=== PATIENT | male | born 1970 | race Caucasian/White ===

== ENCOUNTER 2024-03-10 19:42 | Observation (INO) | payer BC, SELFPAY ==
[2024-03-10] VITALS (7 sets, daily range): BP systolic 171–204; BP diastolic 97–119; PULSE 81–94; RESP 2–28; TEMP 36.9–37.1; O2SAT 92–98; BMI 30.4
--- NOTE | 2024-03-10 20:13 | EX.ED.DYSGE1 ---
HPI History of Present Illness Chief Complaint: Syncope Informant: patient Onset/Context/Timing Context: Sudden Onset Timing: Waxes and wanes Quality: Tightness Location: Substernal Worsened by: Nothing Relieved by: Nitroglycerin Narrative Narrative: Patient presents with chest pain and diaphoresis that began today. Patient states it began rather suddenly. Patient states that he broke into a sweat and became short of breath. Patient states he then developed some tightness across his substernal area. Family states the patient had a syncopal episode after this the last approximately 2 minutes. Family states that he stopped at a gas station and gave him aspirin. EMS administered 2 sublingual nitroglycerin. Patient states this did help. Patient denies any nausea or vomiting. Patient denies any cough or fever. Patient states he did feel lightheaded prior to the syncopal episode. Patient states he has a family history of both parents having coronary artery disease less than 55 years of age. [facility] Medical History Crohn disease Hypertension Diabetes Home Medications ?Medication ?Instructions ?Recorded ?Last Taken ?Type amlodipine 10 mg tablet 10 mg PO DAILY 03/10/24 Unknown History duloxetine 20 mg capsule,delayed 20 mg PO DAILY 03/10/24 Unknown History release (Cymbalta) folic acid 1 mg tablet 1 mg PO DAILY 03/10/24 Unknown History glimepiride 4 mg tablet 2 mg PO QHS 03/10/24 Unknown History glimepiride 4 mg tablet 4 mg PO DAILY 03/10/24 Unknown History lisinopril 20 mg tablet 20 mg PO DAILY 03/10/24 Unknown History metoprolol succinate 50 mg 50 mg PO DAILY 03/10/24 Unknown History tablet,extended release 24 hr (Toprol XL) pregabalin 50 mg capsule (Lyrica) 50 mg PO BID 03/10/24 Unknown History tramadol 50 mg tablet 50 mg PO BID 03/10/24 Unknown History Allergy/AdvReac Type Severity Reaction Status Date / Time Penicillins AdvReac NEEDS Verified 03/10/24 19:43 FOLLOW-UP Surgical History no surgical history no surgical history Social History Smoking Status: Never smoker ROS ROS ED Constitutional Constitutional ED: Reports sweats; Denies chills or fever(s) Eyes Eyes: Denies blurry vision or change in vision ENT ENT ED: Denies rhinorrhea or sore throat Cardiovascular Cardiovascular: Denies chest pain or palpitations Respiratory/Chest Respiratory/Chest: Denies cough or dyspnea Gastrointestinal Gastrointestinal: Denies nausea or vomiting Genitourinary Genitourinary ED: Denies dysuria or hematuria Musculoskeletal Musculoskeletal: Reports neck pain; Denies back pain Integumentary Denies abscess or rash Neurologic Neurologic: Reports headache(s); Denies weakness Allergic/Immunologic Allergic/Immunologic ED: Denies mouth swelling or urticaria EXAM Physical Exam Const Vital Signs: 03/10/24 19:42 03/10/24 19:48 03/10/24 20:42 Temperature 98.5 F Temperature Source Oral Pulse Rate 86 85 Pulse Rate [Lying] Pulse Rate [Sitting (for 1 minute prior to obtaining)] Pulse Rate [Standing (for 1 minute prior to obtaining)] Respiratory Rate 16 28 H Respiratory Effort Normal Non-Labored Respiratory Pattern Normal Blood Pressure 204/118 H 196/109 H Blood Pressure [Lying] Blood Pressure [Sitting (for 1 minute prior to obtaining)] Blood Pressure [Standing (for 1 minute prior to obtaining)] Blood Pressure Mean 146 138 Blood Pressure Mean [Lying] Blood Pressure Mean [Sitting (for 1 minute prior to obtaining)] Blood Pressure Mean [Standing (for 1 minute prior to obtaining)] Pulse Ox 98 92 Oxygen Delivery Method Room Air Room Air 03/10/24 21:00 03/10/24 21:38 03/10/24 22:00 Temperature Temperature Source Pulse Rate 87 94 Pulse Rate [Lying] 81 Pulse Rate [Sitting (for 1 minute prior to obtaining)] 81 Pulse Rate [Standing (for 1 minute prior to obtaining)] 85 Respiratory Rate 2 L 20 H Respiratory Effort Respiratory Pattern Blood Pressure 171/99 H 180/97 H Blood Pressure [Lying] 190/100 H Blood Pressure [Sitting (for 1 minute prior to obtaining)] 200/119 H Blood Pressure [Standing (for 1 minute prior to obtaining)] 196/112 H Blood Pressure Mean 123 124 Blood Pressure Mean [Lying] 130 Blood Pressure Mean [Sitting (for 1 minute prior to obtaining)] 146 Blood Pressure Mean [Standing (for 1 minute prior to obtaining)] 140 Pulse Ox 96 93 Oxygen Delivery Method Room Air Room Air 03/10/24 23:00 Temperature Temperature Source Pulse Rate 83 Pulse Rate [Lying] Pulse Rate [Sitting (for 1 minute prior to obtaining)] Pulse Rate [Standing (for 1 minute prior to obtaining)] Respiratory Rate 15 Respiratory Effort Respiratory Pattern Blood Pressure 193/104 H Blood Pressure [Lying] Blood Pressure [Sitting (for 1 minute prior to obtaining)] Blood Pressure [Standing (for 1 minute prior to obtaining)] Blood Pressure Mean 133 Blood Pressure Mean [Lying] Blood Pressure Mean [Sitting (for 1 minute prior to obtaining)] Blood Pressure Mean [Standing (for 1 minute prior to obtaining)] Pulse Ox 97 Oxygen Delivery Method Room Air Positive well nourished and well developed General Appearance ED: well developed and NAD HEENT Reports moist mucous membranes Neck supple and no JVD Resp normal respiratory effort and clear to auscultation bilaterally Cardio regular rate and regular rhythm GI non-tender and non-distended Palpation: soft Extremity General Extremety ED: Negative for edema or tenderness General Extremity: Negative for edema Neuro oriented x3, CN's II-XII intact bilaterally and no sensory deficits noted Sensorium / Orientation: alert Motor Exam: strength 5/5 throughout Psych mental status grossly normal MDM MDM MDM Narrative Medical decision making narrative: Differential diagnosis includes cardiac dysrhythmia, cardiac ischemia, electrolyte abnormality, dehydration, pneumonia, pneumothorax, alcohol intoxication, and anxiety. EKG will be obtained to assess for cardiac dysrhythmia and cardiac ischemia. Chest x-ray will be obtained to assess for pneumonia and pneumothorax. CBC will be obtained to assess for leukocytosis and anemia. Basic metabolic profile will be obtained to assess for electrolyte abnormality and renal function. High-sensitivity troponin will be obtained to assess for cardiac ischemia. 2-hour repeat high-sensitivity troponin will be obtained to assess for ongoing cardiac ischemia. Serum alcohol level will be obtained to assess for alcohol intoxication. Lab Data Attestation: I reviewed the patient's lab results. Lab results narrative: CBC was reviewed and was within normal limits. Basic metabolic profile was reviewed. Potassium was slightly low at 3.1. BUN was 19 and creatinine was 1.78. Glucose was mildly elevated at 209. Initial high-sensitivity troponin was reviewed and was normal at 15. Serum alcohol level was reviewed and was normal at 14. Urinalysis was reviewed. There is no evidence of urinary tract infection or hematuria. 2-hour repeat high-sensitivity troponin was reviewed and was normal at 14. Labs: Laboratory Results - last 24 hr 03/10/24 03/10/24 03/10/24 19:51 20:40 21:35 WBC 8.6 RBC 5.63 Hgb 16.3 Hct 46.3 MCV 82.2 MCH 29.0 MCHC 35.2 RDW Std Deviation 36.2 RDW Coeff of Rubin 12.1 Plt Count 269 MPV 8.6 Immature Gran % (Auto) 0.200 Neut % (Auto) 69.9 Lymph % (Auto) 21.1 Pine % (Auto) 7.0 Eos % (Auto) 1.2 Baso % (Auto) 0.6 Absolute Neuts (auto) 6.0 Absolute Lymphs (auto) 1.81 Nucleated RBC % 0 Sodium 140 Potassium 3.1 L Chloride 103 Carbon Dioxide 28.0 Anion Gap 9 BUN 19 H Creatinine 1.78 H Estim Creat Clear Calc 58.27 Est GFR (MDRD) Af Amer 52 L Est GFR (MDRD) Non-Af 43 L BUN/Creatinine Ratio 10.7 Glucose 209 H Calcium 9.1 Troponin I High Sens 15 Urine Color Yellow Urine Clarity Clear Urine pH 7.0 Ur Specific [place] 1.010 Urine Protein 30 H Urine Glucose (UA) 1000 H Urine Ketones Negative Urine Occult Blood 10 H Urine Nitrite Negative Urine Bilirubin Negative Urine Urobilinogen Normal Ur Leukocyte Esterase Negative Urine RBC 0 SEEN Urine WBC 0 SEEN Ur Squamous Epith Cells 0 SEEN Urine Bacteria 0 SEEN Urine Mucus 0 SEEN Ethyl Alcohol 14.0 03/10/24 21:58 WBC RBC Hgb Hct MCV MCH MCHC RDW Std Deviation RDW Coeff of Rubin Plt Count MPV Immature Gran % (Auto) Neut % (Auto) Lymph % (Auto) Pine % (Auto) Eos % (Auto) Baso % (Auto) Absolute Neuts (auto) Absolute Lymphs (auto) Nucleated RBC % Sodium Potassium Chloride Carbon Dioxide Anion Gap BUN Creatinine Estim Creat Clear Calc Est GFR (MDRD) Af Amer Est GFR (MDRD) Non-Af BUN/Creatinine Ratio Glucose Calcium Troponin I High Sens 14 Urine Color Urine Clarity Urine pH Ur Specific [place] Urine Protein Urine Glucose (UA) Urine Ketones Urine Occult Blood Urine Nitrite Urine Bilirubin Urine Urobilinogen Ur Leukocyte Esterase Urine RBC Urine WBC Ur Squamous Epith Cells Urine Bacteria Urine Mucus Ethyl Alcohol Radiography Chest X-Ray - ED: 2 View, Read by ED Physician, Read by Radiologist and No Acute Disease Diagnostic Testing: Clinical Impression(s) from Imaging Studies Chest X-Ray 03/10/24 20:45 IMPRESSION: No acute radiographic abnormalities. Electronically Signed: Vineet Harris MD at 21:30 EDT , PA and lateral chest x-ray was obtained. There are 2 views. On my independent interpretation, lung bashir are clear. There is normal cardiac silhouette. Bony thorax is normal. There is no acute process noted. Radiologist also interpreted the x-ray and agrees. EKG Initial EKG: Attestation: I personally reviewed and interpreted this EKG as follows: Interpretation: Sinus Rhythm (95) and Non-Specific ST Changes Comments: EKG was obtained. On my independent interpretation, it showed a normal sinus rhythm with a rate of 95. VA interval, QRS interval, and QTc intervals were all normal. [place] was normal. There are nonspecific ST-T wave changes. Prior EKG tracings: not available for review Prior: No Prior Management Discussion w/another healthcare provider: Hospitalist Treatment and Re-Evaluation :: Patient's blood pressure remained elevated. Patient was given a dose of hydralazine. Patient's blood pressure improved after this. Because of the elevated creatinine, patient was given 500 cc bolus of normal saline. Patient states he has never been told he has had problems with his kidneys in the past. There are no prior laboratory values available for comparison. Because of this, I recommended admission to the hospital for syncope, hypertensive urgency, and acute kidney injury. Case was discussed with the hospitalist. She will admit the patient to her service. Patient understood and was agreeable with the plan. All questions were answered. Discharge Plan Dx/Rx/DC Orders Clinical Impression: Acute kidney injury, Hypertension, Syncope Disposition Disposition: Acute Care Hospital [facility]
--- NOTE | 2024-03-10 20:34 | EKG12_ITS ---
Test Reason : CP Blood Pressure : / mmHG Vent. Rate : 095 BPM Atrial Rate : 095 BPM P-R Int : 180 ms QRS Dur : 068 ms QT Int : 332 ms P-R-T Axes : 040 039 022 degrees QTc Int : 417 ms Sinus rhythm with occasional Premature ventricular complexes Cannot rule out Septal infarct , age undetermined ST & T wave abnormality, consider inferior ischemia Abnormal ECG Confirmed by Shyam Saenz ([id number]), purchase request editor LIDIA LEMOS ([id number]) on 03/12/2024 10:53:01 AM Referred By: SATHYA Confirmed By:Shyam Saenz
--- NOTE | 2024-03-10 20:45 | RAD_ITS ---
INDICATION: CHEST PAIN EXAMINATION/TECHNIQUE: X-RAY - XR Chest 2 Views COMPARISON: None. FINDINGS: The lungs are clear. The heart is borderline enlarged. No pleural effusion or pneumothorax. No acute osseous abnormalities. RAD/Chest PA and Lateral IMPRESSION: No acute radiographic abnormalities. Electronically Signed: Vineet Harris MD at 21:30 EDT ,
[2024-03-10 20:47] LABS: Absolute Lymphocyte Count 1.81 X10^3/uL (0.83-4.51); Basophil# 0.05 X10^3/uL; Basophil% 0.6 % (0-1); Eosinophils% 1.2 % (0-5); Hematocrit 46.3 % (40-54); Hemoglobin 16.3 g/dL (13.0-16.5); Lymphocyte # 1.81 X10^3/ul (0.83-4.51); Lymphocyte % 21.1 % (19-41); Mean Corp Hgb Conc 35.2 g/dL (32-36); Mean Corpuscular Volume 82.2 fL (80-94); Mean Platelet Vol. 8.6 fl (6.2-12.0); NRBC Flagged by Analyzer 0 % (0-5); Neutrophil % 69.9 % (47-70); Platelet Count 269 K/mm3 (150-450); RBC Distribution Width CV 12.1 % (11.6-14.6); RBC Distribution Width SD 36.2 fl (35.1-43.9); Red Blood Count 5.63 M/mm3 (4.6-6.2); White Blood Count 8.6 K/mm3 (4.4-11.0)
[2024-03-10 21:07] LABS: Anion Gap 9 (5-15); BUN 19 mg/dL (7-18); BUN/Creat Ratio 10.7 RATIO (10-20); Calcium,Total 9.1 mg/dL (8.5-10.1); Chloride 103 mmol/L (98-107); Creatinine, Serum 1.78 mg/dL (0.70-1.30); EST Glomerular Filtration Rate 43 mL/min (>60); Est Glom Filt Rate - Afr Amer 52 mL/min (>60); Estimated Creatinine Clearance 58.27 ml/min; Glucose 209 mg/dL (74-106); Potassium 3.1 mmol/L (3.5-5.1); Sodium Level 140 mmol/L (136-145); Troponin-I HS (w/2H Reflex) 15 pg/mL (3.0-78.0)
[2024-03-10 21:40] LABS: Bacteria 0 SEEN /hpf (None Seen); Mucous, Urine 0 SEEN /hpf (<or=2+); Red Blood Cells-Urine 0 SEEN /hpf (0-5); Squamous Epithelial Cells - UA 0 SEEN /hpf (0-5); White Blood Cells 0 SEEN /hpf (0-5)
[2024-03-10 21:41] LABS: Color, Urine Yellow (Yellow); Glucose, Dipstick 1000 mg/dl (Normal); Ketone-Dipstick Negative (Negative); Leukocyte Esterase-Dipstick Negative /ul (Negative); Nitrite-Dipstick Negative (Negative); Occult Blood-Urine 10 /ul (Negative); Protein-Dipstick 30 mg/dl (Negative); Urine Bilirubin Dipstick Negative (Negative); Urine Clarity Clear (Clear); Urine Urobilinogen Normal (Normal)
[2024-03-10] MEDS: hydrALAZINE 20 MG/ML Vial 10 MG IV (21:54)
[2024-03-10] MEDS: Potassium Chloride Oral Tablet 20 MEQ 40 MEQ PO (21:55)
[2024-03-10 22:39] LABS: Reflex Troponin-HS? (from REC) Y
[2024-03-10 22:57] LABS: Troponin-I HS 14 pg/mL (3.0-78.0)
[2024-03-10] MEDS: 0.9% Normal Saline (500mL Bag) 500 ML 1000 ML IV (23:00)
--- NOTE | 2024-03-10 23:25 | HP.PCM.HOS_ITS ---
HPI - General General Date of Admission: 03/10/24 Date of Service: 03/10/24 Chief Complaint: Syncope HPI Narrative MARTINEZ GUERRERO, is a 53 M who presented to the emergency department at [facility] on 03/10/2024 with a chief complaint of syncope. Patient reported that all of his symptoms started with some chest pain and diaphoresis that began prior to arrival. It started abruptly and he became very sweaty and then short of breath and following developed tightness across his chest and substernal area. He then had a syncopal episode that lasted about 2 minutes. Family reported that they stopped at a gas station and gave him some aspirin. He also was administered 2 sublingual nitroglycerin by the squad prior to arrival. The patient did state that this helped. He had no nausea or vomiting. He has denied any fever or chills, he has had no cough, his bowels have been normal and he said no hematochezia or melena. He has a personal history of hypertension, hyperlipidemia, and diabetes and he has a family history of early onset coronary disease with both of his parents having CAD at less than 55 years of age. He has had previous stress test however has been greater than 10 years that this was performed. Vital signs on presentation showed a temperature of 98.5, heart rate 86, respiratory rate 16, initial blood pressure was 204/118 with repeat at 171/99 after IV medication. Orthostatic vitals were normal. Oxygen saturation has been in the 90s on room air. CBC was unremarkable. His chemistry panel showed mild hypokalemia with a potassium of 3.1, and elevated BUN and creatinine with a BUN of 19 and a serum creatinine of 1.78. Glucose was elevated at 209. Initial troponin was 15 with a repeat of 14. UA shows glucose urea and some occult blood but is not significant for any infection. Alcohol level was 14. Chest x- ray was unremarkable. EKG showed some nonspecific T wave flattening in the lateral leads but no changes consistent with acute ischemia and intervals were normal. [facility] Medical History (Updated 03/11/24 @ 01:[address] Mariana Decker, DO) Chronic pain Diabetic neuropathy Depression Obesity Crohn disease Hypertension Diabetes Home Medications ?Medication ?Instructions ?Recorded ?Last Taken ?Type amlodipine 10 mg tablet 10 mg PO DAILY 03/10/24 Unknown History duloxetine 20 mg capsule,delayed 20 mg PO DAILY 03/10/24 Unknown History release (Cymbalta) folic acid 1 mg tablet 1 mg PO DAILY 03/10/24 Unknown History glimepiride 4 mg tablet 2 mg PO QHS 03/10/24 Unknown History glimepiride 4 mg tablet 4 mg PO DAILY 03/10/24 Unknown History lisinopril 20 mg tablet 20 mg PO DAILY 03/10/24 Unknown History metoprolol succinate 50 mg 50 mg PO DAILY 03/10/24 Unknown History tablet,extended release 24 hr (Toprol XL) pregabalin 50 mg capsule (Lyrica) 50 mg PO BID 03/10/24 Unknown History tramadol 50 mg tablet 50 mg PO BID 03/10/24 Unknown History Allergy/AdvReac Type Severity Reaction Status Date / Time Penicillins AdvReac NEEDS Verified 03/10/24 19:43 FOLLOW-UP Family History (Updated 03/11/24 @ 01:[address] Mariana Decker DO) Other Diabetes Heart disease Hypertension Surgical History no surgical history no surgical history Social History (Updated 03/11/24 @ 01:[address] Mariana Decker DO) household members: spouse housing: house Smoking Status: Never smoker alcohol intake: current alcohol intake frequency: a few times a month substance use type: does not use ROS Constitutional Constitutional: Denies anorexia, change in weight, chills, fatigue, fever(s), malaise, night sweats, weakness or other Eyes Eyes: Denies blurry vision, change in eye color, change in vision, discharge from eye(s), double vision, erythema, eye pain, loss of vision or other ENT HEENT: Denies abnormal hearing, dysphagia, ear pain, epistaxis, headache(s), hearing loss, nasal congestion, nasal discharge, post nasal drip, sinus pressure, sore throat or other Cardiovascular Cardiovascular: Reports chest pain, syncope and other Details: Diaphoresis Respiratory/Chest Respiratory/Chest: Reports shortness of breath at rest; Denies cough, dyspnea, excessive phlegm production, hemoptysis, productive cough, shortness of breath with exertion, wheezing or other Gastrointestinal Gastrointestinal: Denies abdominal pain, coffee ground emesis, constipation, diarrhea, dyspepsia, hematemesis, hematochezia, loose stools, melena, nausea, vomiting or other Genitourinary Genitourinary: Denies burning urination, difficulty urinating, dysuria, hematuria, nocturia, urinary frequency, urinary hesitancy, urinary incontinence, urinary urgency or other Musculoskeletal Musculoskeletal: Denies arthralgias, back pain, joint pain, joint stiffness, joint swelling, myalgias, neck pain or other Neurologic Neurologic: Reports headache(s) and paresthesias; Denies abnormal gait, abnormal speech, confusion, disequilibrium, dizziness, focal weakness, numbness, seizure- like activity, seizures, syncope, tingling, tremor(s) or other Psychiatric Psychiatric: Reports anxiety and depression; Denies homicidal ideation, suicidal ideation or other Endocrine Endocrinology: Denies change in body appearance, cold intolerance, excessive sweating, heat intolerance, polydipsia, polyuria or other Hematologic/Lymphatic Hematologic/Lymphatic: Denies anemia, easy bleeding, easy bruising, lymphadenopathy or other Allergic/Immunologic Allergic/Immunologic: Denies rhinitis, hives, eczemia, asthma or other Vital Signs Vital Signs Vital Signs: 03/10/24 19:42 03/10/24 19:48 03/10/24 20:42 Temperature 98.5 F Temperature Source Oral Pulse Rate 86 85 Pulse Rate [Lying] Pulse Rate [Sitting (for 1 minute prior to obtaining)] Pulse Rate [Standing (for 1 minute prior to obtaining)] Respiratory Rate 16 28 H Respiratory Effort Normal Non-Labored Respiratory Pattern Normal Blood Pressure 204/118 H 196/109 H Blood Pressure [Lying] Blood Pressure [Sitting (for 1 minute prior to obtaining)] Blood Pressure [Standing (for 1 minute prior to obtaining)] Blood Pressure Mean 146 138 Blood Pressure Mean [Lying] Blood Pressure Mean [Sitting (for 1 minute prior to obtaining)] Blood Pressure Mean [Standing (for 1 minute prior to obtaining)] Pulse Ox 98 92 Oxygen Delivery Method Room Air Room Air 03/10/24 21:00 03/10/24 21:38 03/10/24 22:00 Temperature Temperature Source Pulse Rate 87 94 Pulse Rate [Lying] 81 Pulse Rate [Sitting (for 1 minute prior to obtaining)] 81 Pulse Rate [Standing (for 1 minute prior to obtaining)] 85 Respiratory Rate 2 L 20 H Respiratory Effort Respiratory Pattern Blood Pressure 171/99 H 180/97 H Blood Pressure [Lying] 190/100 H Blood Pressure [Sitting (for 1 minute prior to obtaining)] 200/119 H Blood Pressure [Standing (for 1 minute prior to obtaining)] 196/112 H Blood Pressure Mean 123 124 Blood Pressure Mean [Lying] 130 Blood Pressure Mean [Sitting (for 1 minute prior to obtaining)] 146 Blood Pressure Mean [Standing (for 1 minute prior to obtaining)] 140 Pulse Ox 96 93 Oxygen Delivery Method Room Air Room Air 03/10/24 23:00 03/10/24 23:24 Temperature 98.7 F Temperature Source Pulse Rate 83 88 Pulse Rate [Lying] Pulse Rate [Sitting (for 1 minute prior to obtaining)] Pulse Rate [Standing (for 1 minute prior to obtaining)] Respiratory Rate 15 24 H Respiratory Effort Respiratory Pattern Blood Pressure 193/104 H 195/104 H Blood Pressure [Lying] Blood Pressure [Sitting (for 1 minute prior to obtaining)] Blood Pressure [Standing (for 1 minute prior to obtaining)] Blood Pressure Mean 133 134 Blood Pressure Mean [Lying] Blood Pressure Mean [Sitting (for 1 minute prior to obtaining)] Blood Pressure Mean [Standing (for 1 minute prior to obtaining)] Pulse Ox 97 96 Oxygen Delivery Method Room Air Weight Weight: 99.2 kg Body Mass Index (BMI) 30.4 Physical Exam Const alert, oriented x3, no apparent distress, healthy appearing and well nourished; Negative for average body habitus Constitutional Narrative: Overweight, middle-aged, white male, sitting up in bed, currently appears comfortable, does not appear toxic, at bedside General Appearance: cooperative HEENT normocephalic, head/scalp atraumatic, hearing grossly normal bilaterally and moist oral mucous membranes HEENT Narrative: Mallampati 3, no thrush Eyes PERRL, EOMs intact bilaterally and conjunctivae normal Eyes Narrative: No scleral icterus Neck no lymphadenopathy, supple, no JVD and no carotid bruits Neck Narrative: Trachea midline, no thyroid enlargement Resp normal respiratory effort, no retractions, no use of accessory muscles and clear to auscultation bilaterally Auscultation: Negative for rales, rhonchi or wheezes Cardio regular rate, regular rhythm, S1 normal heart sound, S2 normal heart sound, no murmurs, no rub and no clicks; Negative for no gallops Cardio Narrative: S4 gallop present GI normal to inspection, nondistended, normoactive bowel sounds, soft to palpation and non-tender Extremity no clubbing, cyanosis or edema Extremity Narrative: Radial and pedal pulses are 2+ Neuro oriented x3, moves all extremities and no focal motor deficits Speech: speech normal Psych affect normal Psych Narrative: Very pleasant, interacts appropriately Results Lab / Micro Data 03/10/24 19:51 03/10/24 19:51 Labs: Laboratory Results - last 24 hr 03/10/24 19:51: WBC 8.6, RBC 5.63, Hgb 16.3, Hct 46.3, MCV 82.2, MCH 29.0, MCHC 35.2, RDW Std Deviation 36.2, RDW Coeff of Rbuin 12.1, Plt Count 269, MPV 8.6, Immature Gran % (Auto) 0.200, Neut % (Auto) 69.9, Lymph % (Auto) 21.1, [place] % (Auto) 7.0, Eos % (Auto) 1.2, Baso % (Auto) 0.6, Absolute Neuts (auto) 6.0, Absolute Lymphs (auto) 1.81, Nucleated RBC % 0, Sodium 140, Potassium 3.1 L, Chloride 103, Carbon Dioxide 28.0, Anion Gap 9, BUN 19 H, Creatinine 1.78 H, Estim Creat Clear Calc 58.27, Est GFR (MDRD) Af Amer 52 L, Est GFR (MDRD) Non-Af 43 L, BUN/Creatinine Ratio 10.7, Glucose 209 H, Calcium 9.1, Troponin I High Sens 15 03/10/24 20:40: Ethyl Alcohol 14.0 03/10/24 21:35: Urine Color Yellow, Urine Clarity Clear, Urine pH 7.0, Ur Specific [place] 1.010, Urine Protein 30 H, Urine Glucose (UA) 1000 H, Urine Ketones Negative, Urine Occult Blood 10 H, Urine Nitrite Negative, Urine Bilirubin Negative, Urine Urobilinogen Normal, Ur Leukocyte Esterase Negative, Urine RBC 0 SEEN, Urine WBC 0 SEEN, Ur Squamous Epith Cells 0 SEEN, Urine Bacteria 0 SEEN, Urine Mucus 0 SEEN 03/10/24 21:58: Troponin I High Sens 14 Micro: Microbiology 03/10/24 20:40 Mucosa - Nasopharyngeal SARS-CoV-2, Influenza & RSV (PCR) - Final Imaging Radiology Impression Chest X-Ray 03/10/24 20:45 IMPRESSION: No acute radiographic abnormalities. Electronically Signed: Martinez Harris MD at 21:30 EDT , Assessment & Plan Assessment/Plan (1) Syncope: (2) Hypertension: (3) Acute kidney injury: (4) Hypokalemia: (5) Hyperglycemia due to diabetes mellitus: PLAN: Plan Syncope -Sounds like this may be a vagal response due to his pain and diaphoresis -Orthostatic vitals are negative -Patient does appear to be somewhat dehydrated however we are unclear what his baseline renal function is -Monitor on telemetry -Check a.m. TSH -Check echocardiogram -Check stress test Chest pain/diaphoresis/shortness of breath -Patient with personal risk factors for coronary disease and family history of concerning -Cycle cardiac enzymes--> initial normal at 14 -EKG without any acute findings concerning for acute ischemia -Check echocardiogram -Check lipid profile -Check hemoglobin A1c -Check stress test Hypokalemia -Potassium was replaced -Recheck in a.m. -Check a.m. magnesium level DM-2 with hyperglycemia -Patient takes oral agents in the form of glimepiride at home -Check hemoglobin A1c -Oral agents on hold -SSI -Accu-Cheks as ordered -Cardiac/carb controlled diet Elevated serum creatinine -Baseline serum creatinine is unknown -Hold home lisinopril -Check CPK -IV fluids x 2 L -Repeat lab in a.m. and if not improved may need further workup -UA is overall unremarkable other than glucosuria/small proteinuria and small occult blood with no RBCs Hypertensive urgency -Continue home amlodipine -Hold home lisinopril due to renal function -Continue home metoprolol -Clonidine 0.2 mg x 1 dose -As needed hydralazine for systolic blood pressure greater than 160 -Hopefully will be able to restart lisinopril tomorrow but this will depend on renal function -May need further oral medication at discharge but will need to await trends Neuropathy/chronic pain -Continue home Lyrica -Continue home Ultram Depression -Continue home Cymbalta History of Crohn's disease -Patient's not on any chronic therapy for this -Hemoglobin is stable -Continued outpatient follow-up DVT prophylaxis -Heparin 3 times daily CODE STATUS -Full code Charges/Coding Visit Charges Inpatient E&M: 78455 Init Hosp L3
[2024-03-11] VITALS (12 sets, daily range): BP systolic 141–199; BP diastolic 94–122; PULSE 55–95; RESP 16–18; TEMP 36.2–36.8; O2SAT 96–99; BMI 29.9
--- NOTE | 2024-03-11 00:26 | ECHOD_ITS ---
Reason For Study: Chest Pain Procedure This was a 2D Doppler, Color Flow transthoracic echocardiogram. Exam performed in department. Left Ventricle Normal LV size. Moderate concentric left ventricular hypertrophy. The left ventricular ejection fraction is 65 %. Normal diastololic function. Right Ventricle Normal right ventricle. Atria The left and right atria are normal. Mitral Valve Trivial mitral valve insufficiency. Tricuspid Valve Mild tricuspid valve insufficiency. Normal pulmonary artery pressure. Aortic Valve Trisinus/trileaflet aortic valve. Pulmonic Valve Trivial pulmonic valve insufficiency. MMode/2D Measurements & Calculations LVIDd: 4.4 cm IVSd: 1.8 cm Ao root diam: 3.9 cm LVIDs: 2.9 cm LVPWd: 1.5 cm LA dimension: 4.8 cm RVDd: 3.8 cm FS: 34.3 % LAV(MOD-bp): 63.5 ml SV(MOD-sp4): 73.2 ml LVAd ap4: 36.2 cm2 LAV(MOD-bp) Indexed: 29.3 ml/m2 LVLd ap4: 9.2 cm LAV(MOD-sp2): 72.1 ml EDV(MOD-sp4): 113.6 ml LAV(MOD-sp4): 53.2 ml EDV(sp4-el): 121.0 ml LVAs ap4: 19.4 cm2 LVLs ap4: 7.9 cm ESV(MOD-sp4): 40.4 ml ESV(sp4-el): 40.8 ml EF(MOD-sp4): 64.4 % EF(sp4-el): 66.3 % SV(sp4-el): 80.3 ml LA A4 area: 18.5 cm2 RA A4 area: 18.7 cm2 TAPSE: 1.6 cm Time Measurements MV dec time: 0.21 sec Doppler Measurements & Calculations MV E max boo: 81.0 cm/sec Lat Peak E' Boo: 9.5 cm/sec Med Peak E' Boo: 7.4 cm/sec MV A max boo: 77.3 cm/sec E/E' lat: 8.5 E/E' med: 10.9 MV E/A: 1.0 MV V2 max: 94.9 cm/sec MV P1/2t max boo: 96.9 cm/sec Ao V2 max: 121.4 cm/sec MV max P.6 mmHg MV P1/2t: 78.2 msec Ao max P.9 mmHg MV V2 mean: 50.0 cm/sec MV dec slope: 363.1 cm/sec2 Ao V2 mean: 87.1 cm/sec MV mean P.2 mmHg Ao mean P.5 mmHg MV V2 VTI: 35.7 cm MVA(P1/2t): 2.8 cm2 Ao V2 VTI: 28.4 cm AV (velocity ratio): 0.94 LV V1 max: 117.1 cm/sec PA V2 max: 100.6 cm/sec TR max boo: 222.6 cm/sec LV V1 max P.5 mmHg PA max PG (full): 2.1 mmHg TR max P.8 mmHg LV V1 mean P.2 mmHg PA V2 mean: 63.8 cm/sec LV V1 mean: 84.3 cm/sec PA mean PG (full): 0.74 mmHg LV V1 VTI: 26.7 cm ECHO/Echo Complete Interpretation Summary Moderate concentric left ventricular hypertrophy. The left ventricular ejection fraction is 65 %. Mild tricuspid valve insufficiency. Ordering Physician: Mariana Decker Performed By: Jose Mcintyre RCS
--- NOTE | 2024-03-11 00:27 | EKG12_ITS ---
Test Reason : CP Blood Pressure : / mmHG Vent. Rate : 071 BPM Atrial Rate : 071 BPM P-R Int : 204 ms QRS Dur : 084 ms QT Int : 396 ms P-R-T Axes : 046 026 014 degrees QTc Int : 430 ms Normal sinus rhythm Septal infarct , age undetermined Abnormal ECG When compared with ECG of 10-MAR-2024 19:41, MANUAL COMPARISON REQUIRED, DATA IS UNCONFIRMED Confirmed by Shyam Saenz ([id number]), book editor MONTY GAY ([id number]) on 03/12/2024 1:57:00 PM Referred By: Confirmed By:Shyam Saenz
[2024-03-11] MEDS: 0.9% Normal Saline (1000mL) 1,000 ML 150 ML IV (00:58)
[2024-03-11 01:29] LABS: Bedside Glucose 158 mg/dL (74-106)
[2024-03-11] MEDS: cloNIDine HCl 0.2 MG Tablet PO (01:35)
[2024-03-11 02:22] LABS: CPK Total, Creatine Kinase 213 U/L (39-308)
[2024-03-11 02:28] LABS: Troponin-I HS 16 pg/mL (3.0-78.0)
[2024-03-11] MEDS: hydrALAZINE 50 MG Tablet 75 MG PO ×3 (04:13→21:37)
[2024-03-11 05:15] LABS: Absolute Lymphocyte Count 2.04 X10^3/uL (0.83-4.51); Basophil# 0.06 X10^3/uL; Basophil% 0.8 % (0-1); Eosinophil# 0.15 X10^3/uL; Eosinophils% 2.1 % (0-5); Hematocrit 41.9 % (40-54); Hemoglobin 14.6 g/dL (13.0-16.5); Lymphocyte # 2.04 X10^3/ul (0.83-4.51); Lymphocyte % 28.5 % (19-41); Mean Corp Hgb Conc 34.8 g/dL (32-36); Mean Corpuscular Hgb 28.9 pg (27.0-32.0); Mean Platelet Vol. 8.4 fl (6.2-12.0); Monocyte# 0.86 X10^3/uL; NRBC Flagged by Analyzer 0 % (0-5); Neutrophil # 4.03 X10^3/uL (2.7-7.7); Neutrophil % 56.2 % (47-70); Platelet Count 230 K/mm3 (150-450); RBC Distribution Width CV 12.3 % (11.6-14.6); RBC Distribution Width SD 37.4 fl (35.1-43.9); Red Blood Count 5.05 M/mm3 (4.6-6.2); White Blood Count 7.2 K/mm3 (4.4-11.0)
[2024-03-11] MEDS: Heparin Injection (Vial) 5,000 UNIT/ML VIAL 5000 UNIT SC ×3 (05:37→21:38)
[2024-03-11 05:40] LABS: AST(SGOT) 15 U/L (15-37); Alanine Aminotransfer ALT/SGPT 31 U/L (16-61); Albumin, Serum 3.3 g/dL (3.2-5.0); Alkaline Phosphatase 151 U/L (45-117); Anion Gap 5 (5-15); BUN 23 mg/dL (7-18); Calcium,Total 8.2 mg/dL (8.5-10.1); Chloride 107 mmol/L (98-107); Cholesterol 101 mg/dL (200); Creatinine, Serum 1.44 mg/dL (0.70-1.30); EST Glomerular Filtration Rate 55 mL/min (>60); Est Glom Filt Rate - Afr Amer 66 mL/min (>60); Estimated Creatinine Clearance 71.38 ml/min; Globulin 3.2 g/dL (2.2-4.2); Glucose 164 mg/dL (74-106); High Density Lipoprotein 29 mg/dL; Phosphorus 2.6 mg/dL (2.5-4.9); Potassium 3.3 mmol/L (3.5-5.1); Protein, Total 6.5 g/dL (6.4-8.2); Sodium Level 140 mmol/L (136-145); Triglycerides 97 mg/dL; Very Low Density Lipoprotein 19 mg/dL (5-40)
[2024-03-11] MEDS: Insulin Lispro 100 UNIT/ML INSULN.PEN SC ×2 (06:47→12:25)
[2024-03-11 07:02] LABS: Bedside Glucose 166 mg/dL (74-106)
--- NOTE | 2024-03-11 07:23 | PCM.PN.HOSP ---
Reason for Visit Reason for Visit: Diagnoses Type 2 diabetes mellitus with hyperglycemia (03/10/24) Hypokalemia (03/10/24) Essential (primary) hypertension (03/10/24) Acute kidney failure, unspecified (03/10/24) Syncope and collapse (03/10/24) Subjective Subjective Patient is a 53-year-old gentleman admitted with chest pain. He apparently experienced a syncopal episode and route to the hospital. Was found to have markedly elevated blood pressure on admission admitted to a monitored bed where patient is currently undergoing evaluation Objective Data Objective Data Vital Signs: Vital Signs Temp Pulse Resp BP Pulse Ox O2 Del Method 97.8 F 68 18 160/106 H 96 Room Air 03/11/24 02:58 03/11/24 04:13 03/11/24 02:58 03/11/24 02:58 03/11/24 02:58 03/11/24 02:58 Oxygen Delivery Method Room Air Weight: 97.3 kg Body Mass Index (BMI) 29.9 Intake & Output: Intake and Output for Last 24 Hours 03/09/24 03/10/24 03/11/24 23:59 23:59 23:59 Intake Total 500 / 500 Balance 500 / 500 Lab / Micro Data 03/11/24 04:41 03/11/24 04:41 Labs: Laboratory Results - last 24 hr 03/10/24 19:51: WBC 8.6, RBC 5.63, Hgb 16.3, Hct 46.3, MCV 82.2, MCH 29.0, MCHC 35.2, RDW Std Deviation 36.2, RDW Coeff of Rubin 12.1, Plt Count 269, MPV 8.6, Immature Gran % (Auto) 0.200, Neut % (Auto) 69.9, Lymph % (Auto) 21.1, [place] % (Auto) 7.0, Eos % (Auto) 1.2, Baso % (Auto) 0.6, Absolute Neuts (auto) 6.0, Absolute Lymphs (auto) 1.81, Nucleated RBC % 0, Sodium 140, Potassium 3.1 L, Chloride 103, Carbon Dioxide 28.0, Anion Gap 9, BUN 19 H, Creatinine 1.78 H, Estim Creat Clear Calc 58.27, Est GFR (MDRD) Af Amer 52 L, Est GFR (MDRD) Non-Af 43 L, BUN/Creatinine Ratio 10.7, Glucose 209 H, Calcium 9.1, Troponin I High Sens 15 03/10/24 20:40: Ethyl Alcohol 14.0 03/10/24 21:35: Urine Color Yellow, Urine Clarity Clear, Urine pH 7.0, Ur Specific [place] 1.010, Urine Protein 30 H, Urine Glucose (UA) 1000 H, Urine Ketones Negative, Urine Occult Blood 10 H, Urine Nitrite Negative, Urine Bilirubin Negative, Urine Urobilinogen Normal, Ur Leukocyte Esterase Negative, Urine RBC 0 SEEN, Urine WBC 0 SEEN, Ur Squamous Epith Cells 0 SEEN, Urine Bacteria 0 SEEN, Urine Mucus 0 SEEN 03/10/24 21:58: Troponin I High Sens 14 03/11/24 01:04: POC Glucose 158 H 03/11/24 01:50: Total Creatine Kinase 213, Troponin I High Sens 16 03/11/24 04:41: WBC 7.2, RBC 5.05, Hgb 14.6, Hct 41.9, MCV 83.0, MCH 28.9, MCHC 34.8, RDW Std Deviation 37.4, RDW Coeff of Rubin 12.3, Plt Count 230, MPV 8.4, Immature Gran % (Auto) 0.400, Neut % (Auto) 56.2, Lymph % (Auto) 28.5, [place] % (Auto) 12.0 H, Eos % (Auto) 2.1, Baso % (Auto) 0.8, Absolute Neuts (auto) 4.0, Absolute Lymphs (auto) 2.04, Nucleated RBC % 0, Sodium 140, Potassium 3.3 L, Chloride 107, Carbon Dioxide 28.0, Anion Gap 5, BUN 23 H, Creatinine 1.44 H, Estim Creat Clear Calc 71.38, Est GFR (MDRD) Af Amer 66, Est GFR (MDRD) Non-Af 55 L, BUN/Creatinine Ratio 16.0, Glucose 164 H, Calcium 8.2 L, Phosphorus 2.6, Magnesium 2.0, Total Bilirubin 0.90, AST 15, ALT 31, Alkaline Phosphatase 151 H, Total Protein 6.5, Albumin 3.3, Globulin 3.2, Albumin/Globulin Ratio 1.0, Triglycerides 97, Cholesterol 101, LDL Cholesterol 53, VLDL Cholesterol 19, HDL Cholesterol 29 L, TSH 3.880 H 03/11/24 06:42: POC Glucose 166 H Micro: Microbiology 03/10/24 20:40 Mucosa - Nasopharyngeal SARS-CoV-2, Influenza & RSV (PCR) - Final Radiography Diagnostic Testing: Radiology Impression Chest X-Ray 03/10/24 20:45 IMPRESSION: No acute radiographic abnormalities. Electronically Signed: Vineet Harris MD at 21:30 EDT , Physical Exam Narrative GENERAL: cooperative HEENT: Atraumatic; normocephalic EYES; Anicteric, Normal Conjunctiva NECK; supple, normal thyroid, RESPIRATORY: Diminished to auscultation CARDIOVASCULAR: Regular S1 S2, GI: soft, normoactive bowel sounds, : No Renal angle tenderness; EXTREMITIES: No edema, no clubbing, MUSCULOSKELETAL: no muscle wasting NEURO: Awake; no lateralizing signs. SKIN: No Rash PSYCH; Flat affect Assessment & Plan Assessment/Plan (1) Syncope: (2) Hypertension: (3) Acute kidney injury: (4) Hypokalemia: (5) Hyperglycemia due to diabetes mellitus: PLAN: Plan Patient is a 53-year-old gentleman admitted with chest pain. He apparently experienced a syncopal episode and route to the hospital. Was found to have markedly elevated blood pressure on admission admitted to a monitored bed where patient is currently undergoing evaluation 1. Syncopal episode ? Suspected to be secondary to vasovagal. Patient has been admitted to a monitored bed for continuous telemetry. As part of his management ordered serial cardiac enzymes 2D echo 2. Chest pain ? Cardiac enzymes so far negative to date patient to complete workup in a.m. with a nuclear stress test 3. Acute hypertensive urgency ? Patient blood pressure on admission was 204/118. Patient is on amlodipine metoprolol and lisinopril continued. Added hydralazine as needed for systolic blood pressure greater than 160 4. Hypokalemia ? Corrected per protocol as part of workup ordered magnesium and repeat K 5. Diabetes mellitus type II -patient's oral hypoglycemics held. Placed on long acting insulin, Accu-Cheks a.c. and at bedtime and covered with sliding scale insulin 6. Elevated creatinine ? Patient baseline creatinine unknown patient is on lisinopril held on admission started on IV fluids as part of his management renal ultrasound was ordered. Subsequent monitoring with daily BMPs ordered 7. Diabetic polyneuropathy ? Patient is on Lyrica 8. Depression ? Patient is on Cymbalta 9. Crohn's disease ? Per history currently not on any therapy 10. DVT prophylaxis ? SC heparin Time spent in the patient's overall evaluation,decision-making process, review of diagnostic data, adjustment of management, discussion with other providers, nursing nursing and ancillary staff involved in patient's care documentation, 50 Minutes Charges/Coding Visit Charges Inpatient E&M: 74244 Subs Hosp L3
[2024-03-11] MEDS: amLODIPine 10 MG Tablet PO (08:18)
[2024-03-11] MEDS: DULoxetine Hcl 20 MG Capsule PO (08:18)
[2024-03-11] MEDS: Folic Acid 1 MG Tablet PO (08:18)
[2024-03-11] MEDS: Pregabalin 50 MG Capsule PO ×2 (08:18→21:40)
[2024-03-11] MEDS: Aspirin E.C. 81 MG Tablet PO (08:18)
[2024-03-11] MEDS: traMADol 50 MG Tablet PO ×2 (08:19→21:40)
[2024-03-11] MEDS: Metoprolol(XL)Succ 50 MG Tablet PO (08:19)
[2024-03-11 09:31] LABS: Hemoglobin A1c 7.8 % (3.8-5.6)
[2024-03-11] MEDS: Potassium Chloride Oral Tablet 20 MEQ 40 MEQ PO (12:25)
[2024-03-11 16:34] LABS: Bedside Glucose 293 mg/dL (74-106)
[2024-03-11 17:06] LABS: Bedside Glucose 120 mg/dL (74-106)
[2024-03-11] MEDS: 0.9% Saline Lock 10 ML Syringe IV (21:36)
[2024-03-11] MEDS: Atorvastatin Calcium 80 MG Tablet PO (21:36)
[2024-03-11 22:11] LABS: Bedside Glucose 186 mg/dL (74-106)
[2024-03-12] VITALS (7 sets, daily range): BP systolic 148–183; BP diastolic 94–103; PULSE 50–67; RESP 16; TEMP 36.2–36.6; O2SAT 96; BMI 29.9
[2024-03-12] MEDS: 0.9% Saline Lock 10 ML Syringe IV (05:45)
[2024-03-12] MEDS: Aspirin E.C. 81 MG Tablet PO (05:46)
[2024-03-12 06:23] LABS: Absolute Lymphocyte Count 1.97 X10^3/uL (0.83-4.51); Absolute Neutrophil Count 3.7 X10^3/uL (2.0-7.7); Basophil# 0.05 X10^3/uL; Basophil% 0.8 % (0-1); Eosinophil# 0.21 X10^3/uL; Eosinophils% 3.2 % (0-5); Hemoglobin 14.7 g/dL (13.0-16.5); Lymphocyte # 1.97 X10^3/ul (0.83-4.51); Lymphocyte % 29.7 % (19-41); Mean Corp Hgb Conc 34.2 g/dL (32-36); Mean Corpuscular Hgb 28.8 pg (27.0-32.0); Mean Corpuscular Volume 84.1 fL (80-94); Mean Platelet Vol. 8.7 fl (6.2-12.0); Monocyte# 0.66 X10^3/uL; NRBC Flagged by Analyzer 0 % (0-5); Neutrophil # 3.72 X10^3/uL (2.7-7.7); Platelet Count 243 K/mm3 (150-450); RBC Distribution Width CV 12.3 % (11.6-14.6); Red Blood Count 5.11 M/mm3 (4.6-6.2); White Blood Count 6.6 K/mm3 (4.4-11.0)
[2024-03-12 06:34] LABS: Bedside Glucose 180 mg/dL (74-106)
[2024-03-12 06:38] LABS: Anion Gap 4 (5-15); BUN 22 mg/dL (7-18); BUN/Creat Ratio 16.2 RATIO (10-20); Calcium,Total 8.2 mg/dL (8.5-10.1); Chloride 105 mmol/L (98-107); Creatinine, Serum 1.36 mg/dL (0.70-1.30); EST Glomerular Filtration Rate 58 mL/min (>60); Est Glom Filt Rate - Afr Amer 71 mL/min (>60); Estimated Creatinine Clearance 75.68 ml/min; Glucose 167 mg/dL (74-106); Magnesium 2.6 mg/dL (1.6-2.6); Phosphorus 2.8 mg/dL (2.5-4.9); Potassium 3.4 mmol/L (3.5-5.1); Sodium Level 138 mmol/L (136-145)
[2024-03-12] MEDS: Pregabalin 50 MG Capsule PO (09:43)
[2024-03-12] MEDS: traMADol 50 MG Tablet PO (09:43)
[2024-03-12] MEDS: Acetaminophen 325 MG Tablet 650 MG PO (09:44)
[2024-03-12] MEDS: amLODIPine 10 MG Tablet PO (09:45)
[2024-03-12] MEDS: Folic Acid 1 MG Tablet PO (09:45)
[2024-03-12] MEDS: DULoxetine Hcl 20 MG Capsule PO (09:45)
[2024-03-12] MEDS: Metoprolol(XL)Succ 50 MG Tablet PO (09:46)
--- NOTE | 2024-03-12 10:01 | US_ITS ---
STUDY: RENAL ULTRASOUND - COMPLETE REASON FOR EXAM: Male, 53 years old. Renal failure. TECHNIQUE: Ultrasound evaluation of the kidneys was performed with real-time and static thurston-scale imaging. COMPARISON: None. FINDINGS: RIGHT KIDNEY: Normal location of the right kidney, which is normal in size. The right kidney measures 9.1 cm x 5.3 cm x 5.6 cm. There is a normal cortex of the right kidney. The renal cortex measures 1.2 cm. There is no right renal mass or cyst. There are no right renal calculi. There is no right hydronephrosis. DISTAL RIGHT URETER: There is non-visualization of the distal right ureter. There is no demonstrated right ureterovesical junction calculus. There is a visualized right ureteral jet. LEFT KIDNEY: Normal location of the left kidney, which is normal in size. The left kidney measures 10.2 cm x 5 cm x 5.7 cm. There is a normal cortex of the left kidney. The renal cortex measures 1.4 cm. There is no left renal mass or cyst. There are no left renal calculi. There is no left hydronephrosis. DISTAL LEFT URETER: There is non-visualization of the distal left ureter. There is no demonstrated left ureterovesical junction calculus. There is a visualized left ureteral jet. BLADDER: The distended urinary bladder has a volume of 30 ml. The empty urinary bladder has a volume of ml. There is a normal wall thickness of the distended urinary bladder. There is no demonstrated mass within the urinary bladder. There are no demonstrated bladder calculi. US/Kidney and Bladder IMPRESSION: Normal ultrasound of the kidneys and urinary bladder. Electronically Signed: Godwin Diaz MD at 14:06 EDT ,
--- NOTE | 2024-03-12 10:05 | EKG12_ITS ---
Test Reason : Blood Pressure : / mmHG Vent. Rate : 061 BPM Atrial Rate : 061 BPM P-R Int : 206 ms QRS Dur : 090 ms QT Int : 420 ms P-R-T Axes : 026 010 027 degrees QTc Int : 422 ms Sinus rhythm with occasional Premature ventricular complexes Otherwise normal ECG When compared with ECG of 11-MAR-2024 01:39, MANUAL COMPARISON REQUIRED, DATA IS UNCONFIRMED Confirmed by Shyam Saenz ([id number]), newspaper editor managing MONTY GAY ([id number]) on 03/12/2024 1:38:38 PM Referred By: MARTY Confirmed By:Shyam Saenz
[2024-03-12] MEDS: Insulin Lispro 100 UNIT/ML INSULN.PEN SC (11:44)
[2024-03-12 12:03] LABS: Bedside Glucose 171 mg/dL (74-106)
--- NOTE | 2024-03-12 12:08 | STRESSREP_ITS ---
Stress Test Report Date: 03/12/2024 Procedure: Exercise tolerance test/imaging study Indications: Chest pain Consent: Per the patient Procedure: The patient exercised on a Juan protocol for 10 minutes and 30 seconds achieving a peak heart rate of 139 bpm (82% predicted maximal heart rate) with a peak blood pressure 184/74 mmHg and a peak MET capacity of 13.4 METs. The baseline ECG demonstrated sinus rhythm with nonspecific ST changes. The peak exercise ECG demonstrated no diagnostic ischemic changes. Occasional PVC pretest. No significant cardiac dysrhythmias with exercise. The functional capacity was considered excellent. There was complaint of mild chest discomfort with exercise. The examination was discontinued secondary to chest discomfort. The patient was injected with 14.3 mCi of technetium 99m Cardiolite and subsequently rest SPECT Cardiolite nuclear imaging was obtained in the horizontal long, vertical long, and short axis views. Post-exercise, the patient was injected with 44.0 mCi of technetium 99m Cardiolite and subsequently stress SPECT Cardiolite nuclear imaging was obtained in the horizontal long, vertical long, and short axis views. A gated Cardiolite study at peak stress was obtained. Rest and stress SPECT Cardiolite nuclear imaging status post realignment, normalization, and attenuation correction, demonstrates the appearance of relative uniform tracer uptake and myocardial perfusion appearing within normal limits. There is end systolic thickening and brightening. The gated Cardiolite study demonstrates myocardial thickening and inward wall motion. The reported LVEF is 60%. Impression: 1. Technically adequate exercise tolerance test 2. Peak exercise ECG with no diagnostic ischemic changes 3. No significant cardiac dysrhythmias during exercise or recovery 4. Rest and stress SPECT Cardiolite nuclear imaging demonstrate relative uniform tracer uptake and myocardial perfusion appearing within normal limits. 5. The gated Cardiolite study reports an LVEF of 60%. 6. Mild chest discomfort reported with exercise. This note was generated with Smart[employer] software. It may contain incorrect words, spelling, and punctuation that were not noted in checking the note before signing.
--- NOTE | 2024-03-12 12:32 | CASEMGMT ---
KAUSHIK FANG Assessment Face to Face with patient for initial transition planning/care coordination assessment. KAUSHIK FANG introduced self and role at [facility], pt voices understanding. Pt is A&Ox4 and is resting comfortably in bed and is calm. Care providers, pharmacy, and demographics verified. Admitting dx: JAD POSADA Strata: 1 PCP: Noreen Mix Specialists: Denies Preferred Pharmacy: [facility] Insurance: [place] Prescription Benefit:Yes LNOK: Bhavya Ulisses (W) Living Arrangements: Pt lives with his in a single story home with 2 steps to enter ADLs/IADLs: Ind Transportation: Self, . Denies concerns DME: Working [employer] and supplies. Denies further uses or needs HHC/SNF: Denies Hx or needs Pt?s goal: Home Plan: Home no needs. 6c-24. Pt denies further needs at home and states that he feels safe returning with his once he is medically ready. Nidhi De La Cruz RN, CM
--- NOTE | 2024-03-12 14:21 | DCINST_ITS ---
Discharge Instructions Diet Discharge Diet: Low fat / Low cholesterol and Carb Control Diet Activity Discharge Activity: Return to Normal Activity Dressing / Incision Call your doctor if you observe: Fever of 101 or Higher, Shortness of breath, Dizziness, Fainting spells, Swelling in the ankles, Chest pain and Increased palpitations (irregular heartbeat) Follow Up Care Test Results: Test results from this visit will be discussed in further detail at your follow- up appointment, if applicable. Discharge Plan Admission Admit Date/Time: 03/10/24 23:16 Attending Provider: Rm Armijo Primary Care Provider: VIGNESH TOPETE Consulting Providers: Mariana Decker; Cruz Barlow Instructions Additional Instructions / Restrictions: Follow-up with your PCP in 3 to 5 days to monitor your renal function as well as your blood pressure make any adjustments necessary. Discharge Orders/Prescriptions Prescriptions: Continued metoprolol succinate [Toprol XL] 50 mg tablet extended release 24 hr 50 mg PO DAILY folic acid 1 mg tablet 1 mg PO DAILY amlodipine 10 mg tablet 10 mg PO DAILY glimepiride 4 mg tablet 4 mg PO DAILY glimepiride 4 mg tablet 2 mg PO QHS tramadol 50 mg tablet 50 mg PO BID duloxetine [Cymbalta] 20 mg capsule,delayed release(DR/EC) 20 mg PO DAILY pregabalin [Lyrica] 50 mg capsule 50 mg PO BID Held lisinopril 20 mg tablet 20 mg PO DAILY Hold Instructions: Resume on 03/14/24. Referrals / Follow Up: VIGNESH TOPETE MD [Primary Care Provider] - Within 1 Week Town Doctor,Out of [Non-Staff] - Disposition Disposition (needs filled in before D/C Order can be placed): Home, Self Care
[2024-03-12] MEDS: hydrALAZINE 50 MG Tablet 75 MG PO (14:32)
--- NOTE | 2024-03-12 15:40 | PHA.DC.MR.R ---
Pharmacy CT Med Reconciliation Pharmacy Service has performed discharge medication reconciliation for this patient. The patient's discharge medication list was reviewed for discrepancies and discrepancies were resolved. Medications at Discharge Home Medications amlodipine 10 mg tablet 10 mg PO DAILY 03/10/24 duloxetine 20 mg capsule,delayed release (Cymbalta) 20 mg PO DAILY 03/10/24 folic acid 1 mg tablet 1 mg PO DAILY 03/10/24 glimepiride 4 mg tablet 2 mg PO QHS 03/10/24 glimepiride 4 mg tablet 4 mg PO DAILY 03/10/24 lisinopril 20 mg tablet 20 mg PO DAILY 03/10/24 metoprolol succinate 50 mg tablet,extended release 24 hr (Toprol XL) 50 mg PO DAILY 03/10/24 pregabalin 50 mg capsule (Lyrica) 50 mg PO BID 03/10/24 tramadol 50 mg tablet 50 mg PO BID 03/10/24
[2024-03-12] MEDS: Potassium Chloride Oral Tablet 20 MEQ 40 MEQ PO (16:04)
--- NOTE | 2024-03-13 08:13 | PCM.DC.SUM ---
Providers Date of Admission: 03/10/24 Date of Discharge: 03/12/24 Primary Care Physician: VIGNESH TOPETE MD Reason For Visit: CHEST PAIN/SYNCOPE Diagnosis Discharge Diagnosis (1) Syncope: Status: Acute Code(s): R55 - Syncope and collapse (2) Hypertension: Status: Chronic Code(s): I10 - Essential (primary) hypertension (3) Acute kidney injury: Status: Acute Code(s): N17.9 - Acute kidney failure, unspecified (4) Hypokalemia: Status: Acute Code(s): E87.6 - Hypokalemia (5) Hyperglycemia due to diabetes mellitus: Status: Acute Code(s): E11.65 - Type 2 diabetes mellitus with hyperglycemia Medications at Discharge Home Medications amlodipine 10 mg tablet 10 mg PO DAILY 03/10/24 duloxetine 20 mg capsule,delayed release (Cymbalta) 20 mg PO DAILY 03/10/24 folic acid 1 mg tablet 1 mg PO DAILY 03/10/24 glimepiride 4 mg tablet 2 mg PO QHS 03/10/24 glimepiride 4 mg tablet 4 mg PO DAILY 03/10/24 lisinopril 20 mg tablet 20 mg PO DAILY 03/10/24 metoprolol succinate 50 mg tablet,extended release 24 hr (Toprol XL) 50 mg PO DAILY 03/10/24 pregabalin 50 mg capsule (Lyrica) 50 mg PO BID 03/10/24 tramadol 50 mg tablet 50 mg PO BID 03/10/24 Hospital Course Operations None Procedures 2-D Echocardiogram and Stress test Summary of Care Provided Minutes Spent on Discharge: 34 Hospital Course: Per HPI: MARTIENZ GUERRERO, is a 53 M who presented to the emergency department at [facility] on 03/10/2024 with a chief complaint of syncope. Patient reported that all of his symptoms started with some chest pain and diaphoresis that began prior to arrival. It started abruptly and he became very sweaty and then short of breath and following developed tightness across his chest and substernal area. He then had a syncopal episode that lasted about 2 minutes. Family reported that they stopped at a gas station and gave him some aspirin. He also was administered 2 sublingual nitroglycerin by the squad prior to arrival. The patient did state that this helped. He had no nausea or vomiting. He has denied any fever or chills, he has had no cough, his bowels have been normal and he said no hematochezia or melena. He has a personal history of hypertension, hyperlipidemia, and diabetes and he has a family history of early onset coronary disease with both of his parents having CAD at less than 55 years of age. He has had previous stress test however has been greater than 10 years that this was performed. Vital signs on presentation showed a temperature of 98.5, heart rate 86, respiratory rate 16, initial blood pressure was 204/118 with repeat at 171/99 after IV medication. Orthostatic vitals were normal. Oxygen saturation has been in the 90s on room air. CBC was unremarkable. His chemistry panel showed mild hypokalemia with a potassium of 3.1, and elevated BUN and creatinine with a BUN of 19 and a serum creatinine of 1.78. Glucose was elevated at 209. Initial troponin was 15 with a repeat of 14. UA shows glucose urea and some occult blood but is not significant for any infection. Alcohol level was 14. Chest x-ray was unremarkable. EKG showed some nonspecific T wave flattening in the lateral leads but no changes consistent with acute ischemia and intervals were normal. Hospital Course: 1. Syncopal episode with chest pain?53-year-old male who does a lot of outside work presented to the hospital for syncopal episode and chest pain. His enzymes were negative his EKG was nonischemic. He did have a nuclear stress test which was also nonischemic. He was fairly hypertensive so an echo was performed which was unremarkable. He did have a slight rise in his creatinine indicative of an MADDI due to dehydration, renal ultrasound was also normal. He was started on IV fluids and had significant improvement in his creatinine down to 1.36 on the day of discharge. Again of his slight elevation in creatinine I continue to hold his lisinopril even on discharge. I discussed with him the plan for discharge today he expressed understanding and was amenable to going home and would like to go home today. I do recommend outpatient follow-up in 3 to 5 days with his PCP as well as repeat on his BMP to monitor his renal function. I also recommend adjustment in his blood pressure medications if he remains elevated when he reinstitute lisinopril therapy in a couple of days. 2. Type 2 diabetes with polyneuropathy, anxiety, depression, Crohn's, essential hypertension all chronic medical conditions which complicate his care. His home medications were continued where appropriate Physical Exam Narrative General: Alert, Oriented x3, Cooperative, No apparent distress HEENT: Atraumatic, PERRLA, EOMI, Normocephalic Oral: Moist Mucosa Neck: Supple, No JVD Lungs: Diminished, Normal air movement, No rhonchi, No wheeze, No rales Cardiovascular: Regular rate, Regular Rhythm, Normal S1, Normal S2, No murmurs Abdomen: Soft, Non Tender, Non-Distended, No Hepato-splenomegaly Extremities: No edema, Capillary Refill Less than 3 Seconds Skin: No rashes, No breakdown Musculoskeletal: No Tenderness to Palpation of Joints or Extremities Neurological: No focal neurological deficits, Motor Exam 5/5 strength throughout, Sensory exam intact to light touch and pain Psych/Mental Status: Normal Affect, Appropriate Weight / BMI Weight Weight: 215 lb 1.6 oz Body Mass Index (BMI) 29.9 ABG / Lab / Microbiology Data 03/12/24 05:13 03/12/24 05:13 Laboratory: Laboratory Results - last 24 hr 03/12/24 11:41: POC Glucose 171 H Microbiology: Microbiology 03/10/24 20:40 Mucosa - Nasopharyngeal SARS-CoV-2, Influenza & RSV (PCR) - Final Radiography Diagnostic Testing: Radiology Impression Echocardiogram 03/11/24 00:26 Interpretation Summary Moderate concentric left ventricular hypertrophy. The left ventricular ejection fraction is 65 %. Mild tricuspid valve insufficiency. Ordering Physician: Mariana Decker Performed By: Jose Mcintyre RCS Renal Ultrasound 03/12/24 10:01 IMPRESSION: Normal ultrasound of the kidneys and urinary bladder. Electronically Signed: Godwin Diaz MD at 14:06 EDT , D/C Instructions Discharge Diet: Low fat / Low cholesterol and Carb Control Diet Call your doctor if you observe: Fever of 101 or Higher, Shortness of breath, Dizziness, Fainting spells, Swelling in the ankles, Chest pain and Increased palpitations (irregular heartbeat) Meaningful Use Info Meaningful Use Meaningful Use Diagnoses (Choose all that apply): None applicable Ischemic Stroke Statin Dosing Therapy Reference: STATIN DOSE THERAPY REFERENCE: * Patients > 75 years receive moderate or high dose statin therapy. * Patients 75 years or YOUNGER should receive HIGH intensity statin dose unless contraindicated. You will be required to document reason for non-treatment if statin daily dose does not meet guidelines. HIGH DOSE STATIN THERAPY DAILY Atorvastatin > than or = to 40 mg Rosuvastatin > than or = to 20 mg Amlodipine + Atorvastatin > than or = to 2.5/40 mg Ezetimibe + Simvastatin 10/80 mg Simvastatin 80mg Discharge Plan Admission Admit Date/Time: 03/10/24 23:16 Attending Provider: Rm Armijo Primary Care Provider: VIGNESH TOPETE Consulting Providers: Mariana Decker; Cruz Barlow Instructions Additional Instructions / Restrictions: Follow-up with your PCP in 3 to 5 days to monitor your renal function as well as your blood pressure make any adjustments necessary. Discharge Orders/Prescriptions Prescriptions: Continued metoprolol succinate [Toprol XL] 50 mg tablet extended release 24 hr 50 mg PO DAILY folic acid 1 mg tablet 1 mg PO DAILY amlodipine 10 mg tablet 10 mg PO DAILY glimepiride 4 mg tablet 4 mg PO DAILY glimepiride 4 mg tablet 2 mg PO QHS tramadol 50 mg tablet 50 mg PO BID duloxetine [Cymbalta] 20 mg capsule,delayed release(DR/EC) 20 mg PO DAILY pregabalin [Lyrica] 50 mg capsule 50 mg PO BID Held lisinopril 20 mg tablet 20 mg PO DAILY Hold Instructions: Resume on 03/14/24. Referrals / Follow Up: VIGNESH TOPETE MD [Primary Care Provider] - Within 1 Week Town Doctor,Out of [Non-Staff] - Disposition Disposition (needs filled in before D/C Order can be placed): Home, Self Care Charges/Coding Visit Charges Inpatient E&M: 12370 Disch Hosp >30min
== END 2024-03-12 16:09 | disposition home or self-care (01) | DRG 312 ==
LOC: ED 23:06 → PCU 03-11 07:18
PROVIDERS: Internal Medicine; Admitting Provider Internal Medicine; Emergency Provider Emergency Medicine; PCP Internal Medicine; Visit Provider Family Medicine
DX: R55 Syncope and collapse (principal); K50.90 Crohn's disease, unspecified, without complications; E11.42 Type 2 diabetes mellitus with diabetic polyneuropathy; E11.65 Type 2 diabetes mellitus with hyperglycemia; I16.0 Hypertensive urgency; F32.A Depression, unspecified; I10 Essential (primary) hypertension; E87.6 Hypokalemia; Z79.899 Other long term (current) drug therapy; Z79.84 Long term (current) use of oral hypoglycemic drugs; R07.89 Other chest pain; R06.02 Shortness of breath; Z82.49 Family history of ischemic heart disease and other diseases of the circulatory system; G89.29 Other chronic pain; R79.89 Other specified abnormal findings of blood chemistry
CPT/HCPCS: 36415; 71046; 76770; 78452; 80048; 80053; 80061; 81001; 82077; 82550; 82962; 83036; 83735; 84100; 84443; 84484; 85025; 87631; 93005; 93017; 93306; 94668; 96361; 96372; 96374; 97802; 99221; 99285; A9500; A4216; G0378